=== PATIENT | male | born 1975 | race Caucasian/White ===

== ENCOUNTER 2018-12-22 18:00 | Emergency (ER) | payer OTHER, MEDICAID ==
[2018-12-22] MEDS ORDERED: predniSONE 20 MG TAB PO ONE (18:51)
[2018-12-22] MEDS ORDERED: CYCLOBENZAPRINE 10MG PREPACK#3 BTL TAKEHOME ONE (18:52)
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
[2018-12-22 19:23] VITALS: BP 134/88
== END 2018-12-22 19:25 | disposition home or self-care (01) ==
DX: M54.32 Sciatica, left side (principal); Z87.820 Personal history of traumatic brain injury
CPT/HCPCS: 99284; J7512

== ENCOUNTER → 2018-12-30 | Outpatient (CLI) | payer OTHER, MEDICAID | LOC: FIMAGING 17:38 | PROVIDERS: ATTEND Physical Medicine & Rehabilitation | DX: M51.86 Other intervertebral disc disorders, lumbar region (principal); M48.061 Spinal stenosis, lumbar region without neurogenic claudication ==